=== PATIENT | male | born 1950 | race American Indian/Alaskan Native ===

== ENCOUNTER 2017-05-12 15:47 | Emergency (ER) | payer BC, MEDICAID, OTHER ==
[2017-05-12 16:10] VITALS: BP 145/89
--- NOTE | 2017-05-12 16:33 | ED PDOC ---
Arrival/HPI - General Chief Complaint: Palpitations Time Seen by Provider: 05/12/17 16:08 Historian: Patient - History of Present Illness Narrative History of Present Illness (Text): 05/12/17 16:33 67 y/o male w/ no sig endorsed pmh presents c/o 1 week of intermittent palpitations not associated with sob/dyer/cp/nausea/vomiting. Diaphoresis or exertional exacerbation/history of acs/malignant arrhythmia has ever been diagnosed on his q2 yearly physicals. Drinks 1 strong cup of coffee daily typically in the late morning , denies using stimulants/caffeinated sodas/ chocolate etc. No PMD Time/Duration: 1 week Symptom Onset: Sudden Symptom Course: Unchanged Past Medical History - Provider Review Nursing Documentation Reviewed: Yes - Infectious Disease Hx of Infectious Diseases: None - Psychiatric Hx Psychophysiologic Disorder: No Hx Substance Use: No - Anesthesia Hx Anesthesia: No Hx Anesthesia Reactions: No Hx Malignant Hyperthermia: No Family/Social History - Physician Review Nursing Documentation Reviewed: Yes Family/Social History: No Known Family HX Smoking Status: Never Smoked Hx Alcohol Use: No Hx Substance Use: No Allergies/Home Meds Allergies/Adverse Reactions: Allergies No Known Allergies Allergy (Verified 05/12/17 16:11) Home Medications: Home Meds Medication Instructions Recorded Confirmed No Known Home Med 05/12/17 05/12/17 Review of Systems - Review of Systems Constitutional: Normal Eyes: Normal ENT: Normal Respiratory: Normal Cardiovascular: Palpitations Gastrointestinal: Normal Genitourinary Male: Normal Musculoskeletal: Normal Skin: Normal Neurological: Normal Endocrine: Normal Hemo/Lymphatic: Normal Psychiatric: Normal Physical Exam Vital Signs Reviewed: Yes Vital Signs Pulse Resp BP Pulse Ox 05/12/17 17:08 88 05/12/17 16:04 87 19 145/89 97 Temperature: Afebrile Blood Pressure: Normal Pulse: Regular Respiratory Rate: Normal Appearance: Positive for: Well-Appearing, Non-Toxic, Comfortable Pain Distress: None Mental Status: Positive for: Alert and Oriented X 3 - Systems Exam Head: Present: Atraumatic, Normocephalic Pupils: Present: PERRL Extroacular Muscles: Present: EOMI Conjunctiva: Present: Normal Mouth: Present: Moist Mucous Membranes Neck: Present: Normal Range of Motion Respiratory/Chest: Present: Clear to Auscultation, Good Air Exchange. No: Respiratory Distress, Accessory Muscle Use Cardiovascular: Present: Regular Rate and Rhythm, Normal S1, S2. No: Murmurs Abdomen: Present: Normal Bowel Sounds. No: Tenderness, Distention, Peritoneal Signs Back: Present: Normal Inspection Upper Extremity: Present: Normal Inspection. No: Cyanosis, Edema Lower Extremity: Present: Normal Inspection. No: Edema Neurological: Present: GCS=15, CN II-XII Intact, Speech Normal, Motor Func Grossly Intact, Normal Sensory Function, Normal Cerebellar Funct, Norm Deep Tendon Reflexes, Gait Normal, Memory Normal, Normal 2Pt Descrimination Skin: Present: Warm, Dry, Normal Color. No: Rashes Psychiatric: Present: Alert, Oriented x 3, Normal Insight, Normal Concentration Medical Decision Making ED Course and Treatment: 05/12/17 17:39 Impression: 67 year old male with intermittent palpitations. Plan: -- EKG -- Chest X-ray -- Labs -- Urinalysis -- Reassess and disposition Progress Notes: 05/12/17 1600 nsr @ 82 bpm twi in I, aVL, V4-V6 Moderate criteria for LVH 21:41 05/12/17 2038 NSR @ 74 BPM TWI N 1, Avl, V5/V6 , V4 seemingly pseudo-normalized st-t complexes however qrs complex also different with no negative deflection so lead placement obviously diefferet Pt has not had any palpitations here nor has he ever admitted to chest pain/ pressure nor discomfort. . 05/12/17 21:52 Dr. Verdugo was contacted in ED and advised two sets, and advsies pattient to follow up in his office for possible holter monitry placement for detection of possible paroxysmal arrythmia. - Lab Interpretations Lab Results: 05/12/17 16:48 05/12/17 16:48 Lab Results 05/12/17 20:08: Troponin I < 0.01 05/12/17 18:50: Urine Opiates Screen Negative, Urine Methadone Screen Negative, Ur Barbiturates Screen Negative, Ur Phencyclidine Scrn Negative, Ur Amphetamines Screen Negative, U Benzodiazepines Scrn Negative, U Oth Cocaine Metabols Negative, U Cannabinoids Screen Negative 05/12/17 18:50: Urine Color Yellow, Urine Appearance Clear, Urine pH 7.0, Ur Specific [place] 1.015, Urine Protein Negative, Urine Glucose (UA) Negative, Urine Ketones Negative, Urine Blood Negative, Urine Nitrate Negative, Urine Bilirubin Negative, Urine Urobilinogen 1.0 H, Ur Leukocyte Esterase Negative 05/12/17 16:48: Thyroxine (T4) 7.0, TSH 3rd Generation 0.83 05/12/17 16:48: PT 11.6, INR 1.06, APTT 33.6 05/12/17 16:48: Sodium 142, Potassium 4.0, Chloride 104, Carbon Dioxide 29, Anion Gap 13, BUN 12, Creatinine 1.0, Est GFR ( Amer) > 60, Est GFR (Non- Af Amer) > 60, Random Glucose 107, Calcium 9.6, Magnesium 1.9, Total Bilirubin 0.6, AST 24, ALT 40, Alkaline Phosphatase 80, Lactate Dehydrogenase 398, Total Creatine Kinase 128, Troponin I < 0.01, NT-Pro-B Natriuret Pep < 11.1, Total Protein 7.2, Albumin 4.0, Globulin 3.2, Albumin/Globulin Ratio 1.3 05/12/17 16:48: WBC 5.1, RBC 4.78, Hgb 14.7, Hct 40.7 L, MCV 85.1, MCH 30.8, MCHC 36.1, RDW 13.9, Plt Count 184, MPV 9.7, Gran % 42.5 L, Lymph % (Auto) 47.3 H, Harper % (Auto) 8.0 H, Eos % (Auto) 1.8, Baso % (Auto) 0.4, Gran # 2.17, Lymph # 2.4, Harper # 0.4, Eos # 0.1, Baso # 0.02 I have reviewed the lab results: Yes - RAD Interpretation Radiology Orders: 05/12/17 16:17 CHEST TWO VIEWS (PA/LAT) [RAD] Stat Disposition/Present on Arrival - Present on Arrival Any Indicators Present on Arrival: No History of DVT/PE: No History of Uncontrolled Diabetes: No Urinary Catheter: No History of Decub. Ulcer: No History Surgical Site Infection Following: None - Disposition Have Diagnosis and Disposition been Completed?: Yes Diagnosis: Palpitations Disposition: HOME/ ROUTINE Disposition Time: 21:53 Patient Plan: Discharge Condition: GOOD Discharge Instructions (ExitCare): Palpitations (ED) Print Language: WALLISIAN Referrals: Radhames Quan MD [Staff Provider] - Follow up with primary Forms: [employer] (French)
[2017-05-12 17:09] LABS: BASO # 0.02 K/mm3 (0.0-2.0); BASO % 0.4 % (0.0-3.0); EOS # 0.1 (0.0-0.7); EOS % 1.8 % (1.5-5.0); GRAN # 2.17 (1.4-6.5); GRAN % 42.5 % (50.0-68.0); HEMATOCRIT 40.7 % (42.0-52.0); LYMPH # 2.4 (1.2-3.4); LYMPH % 47.3 % (22.0-35.0); MEAN CELL VOLUME 85.1 fl (80.0-105.0); MEAN CORPUSCULAR HEMOGLOBIN 30.8 pg (25.0-35.0); MEAN CORPUSCULAR HGB CONC 36.1 g/dl (31.0-37.0); MEAN PLATELET VOLUME 9.7 fl (7.0-11.0); MONO # 0.4 (0.1-0.6); RED CELL DISTRIBUTION WIDTH 13.9 % (11.5-14.5); WHITE BLOOD COUNT 5.1 10^3/ul (4.5-11.0)
[2017-05-12 17:15] LABS: ALB/GLOB RATIO 1.3 (1.1-1.8); ALKALINE PHOSPHATASE 80 U/L (38-126); ALT/SGPT 40 U/L (7-56); AST/SGOT 24 U/L (17-59); BILIRUBIN,TOTAL 0.6 mg/dL (0.2-1.3); BLOOD UREA NITROGEN 12 mg/dL (7-21); CALCIUM 9.6 mg/dL (8.4-10.5); CARBON DIOXIDE 29 mmol/L (21-33); CHLORIDE 104 mmol/L (98-107); GFR AFRICAN-AMERICAN > 60; GLUCOSE,RANDOM 107 mg/dL (70-110); MAGNESIUM 1.9 mg/dL (1.7-2.2); SODIUM 142 mmol/L (132-148); TOTAL PROTEIN 7.2 g/dL (5.8-8.3)
[2017-05-12 17:25] LABS: INR 1.06 (0.93-1.08); PARTIAL THROMBOPLASTIN TIME 33.6 Seconds (25.1-36.5)
[2017-05-12 17:29] LABS: TROPONIN I < 0.01 ng/mL
[2017-05-12 17:46] LABS: THYROID STIMULATING HORMONE 0.83 mIU/mL (0.46-4.68)
[2017-05-12 19:00] LABS: URINE BILIRUBIN NEGATIVE (NEGATIVE); URINE BLOOD NEGATIVE (NEGATIVE); URINE GLUCOSE (UA) NEGATIVE (NEGATIVE); URINE KETONE NEGATIVE (NEGATIVE); URINE LEUKOCYTE ESTERASE NEGATIVE Leu/uL (NEGATIVE); URINE PROTEIN NEGATIVE mg/dL (<30 mg/dL)
[2017-05-12 19:09] LABS: URINE APPEARANCE CLEAR (CLEAR); URINE COLOR YELLOW (YELLOW)
[2017-05-12 22:10] VITALS: PULSE 68; RESP 20; O2SAT 95
--- NOTE | 2017-05-13 07:16 | RAD ---
HISTORY: palpitations COMPARISON: No prior. TECHNIQUE: Chest PA and lateral FINDINGS: LUNGS: No active pulmonary disease. PLEURA: No significant pleural effusion identified. No pneumothorax apparent. CARDIOVASCULAR: The cardiac silhouette appears normal. There is a convex left lateral segment of the descending thoracic aorta which could be aneurysmal. Alternatively, there may be lesion anterior to the descending thoracic aorta creating this contour. Follow-up chest CT with contrast is advised for better characterization. OSSEOUS STRUCTURES: No significant abnormalities. VISUALIZED UPPER ABDOMEN: Normal. OTHER FINDINGS: None. IMPRESSION: No active pulmonary disease appreciable. The descending thoracic aortic aneurysm not is not excluded or other possible lesion anterior to the thoracic here in the mediastinum. Follow-up chest CT with contrast is advised for greater characterization.
--- NOTE | 2017-05-14 09:38 | CARD ---
APPROVED REPORT EKG Measurement Heart [id number] <Conclusion> Normal sinus rhythm Moderate voltage criteria for LVH T wave abnormality, consider lateral ischemia
--- NOTE | 2017-05-14 09:43 | CARD ---
APPROVED REPORT EKG Measurement Heart [id number] [place] [id number] <Conclusion> Normal sinus rhythm LVH STTW changes c/w ischemia No change
== END 2017-05-12 22:12 | disposition home or self-care (01) ==
LOC: ED 15:47
DX: R00.2 Palpitations (principal)
CPT/HCPCS: 71020; 80053; 81003; 82550; 83615; 83735; 83880; 84436; 84443; 84484; 85025; 85610; 85730; 99285; G0480

== ENCOUNTER 2018-12-07 17:18 | Emergency (ER) | payer BC ==
[2018-12-07 17:30] VITALS: BMI 28.0
[2018-12-07 17:32] VITALS: BP 137/83; PULSE 81; RESP 16; TEMP 98.9; O2SAT 97
--- NOTE | 2018-12-07 18:31 | ED PDOC ---
Arrival/HPI - General Chief Complaint: ENT Problem Time Seen by Provider: 12/07/18 17:31 Historian: Patient - History of Present Illness Narrative History of Present Illness (Text): 12/07/18 18:31 68 y/o male with PMH of sinusitis presents to the ED c/o intermittent sinus congestion and rhinorrhea x several years. Pt states he is in ED at the advice of his friend who recommended he "get checked out", as the friend is also being evaluated in ED at this time. Pt states his symptoms are worst when the weather changes and are occasionally associated with itchy watery eyes. Has never taken any medication for his symptoms. Denies fever, chills, cough, chest pain, SOB, purulent rhinorrhea, headache, neck pain/stiffness, ear pain, dizziness, SOB, palpitations, or any other associated symptoms. Past Medical History - Provider Review Nursing Documentation Reviewed: Yes - Infectious Disease Hx of Infectious Diseases: None - Psychiatric Hx Psychophysiologic Disorder: No Hx Substance Use: No - Anesthesia Hx Anesthesia: No Hx Anesthesia Reactions: No Hx Malignant Hyperthermia: No Family/Social History - Physician Review Nursing Documentation Reviewed: Yes Family/Social History: No Known Family HX Smoking Status: Never Smoked Hx Alcohol Use: No Hx Substance Use: No Allergies/Home Meds Allergies/Adverse Reactions: Allergies No Known Allergies Allergy (Verified 12/07/18 17:29) Review of Systems - Review of Systems Constitutional: Normal. absent: Fevers Eyes: Normal. absent: Vision Changes ENT: Rhinorrhea, Sinus Congestion. absent: Sore Throat Respiratory: Normal. absent: SOB, Cough, Sputum, Wheezing Cardiovascular: Normal. absent: Chest Pain, Palpitations, Syncope Gastrointestinal: Normal. absent: Abdominal Pain, Nausea, Vomiting Musculoskeletal: Normal. absent: Back Pain, Neck Pain Skin: Normal. absent: Rash Neurological: Normal. absent: Headache, Dizziness Physical Exam Vital Signs Reviewed: Yes Vital Signs Temp Pulse Resp BP Pulse Ox 12/07/18 17:31 98.9 F 81 16 137/83 97 Temperature: Afebrile Blood Pressure: Normal Pulse: Regular Respiratory Rate: Normal Appearance: Positive for: Well-Appearing, Non-Toxic, Comfortable Pain Distress: None Mental Status: Positive for: Alert and Oriented X 3 - Systems Exam Head: Present: Atraumatic, Normocephalic Pupils: Present: PERRL Extroacular Muscles: Present: EOMI Conjunctiva: Present: Normal Ears: Present: Normal, NORMAL TM, Normal Canal Mouth: Present: Moist Mucous Membranes Pharnyx: Present: Normal. No: ERYTHEMA, EXUDATE, TONSILS ENLARGED Neck: Present: Normal Range of Motion Respiratory/Chest: Present: Clear to Auscultation, Good Air Exchange. No: Respiratory Distress, Accessory Muscle Use Cardiovascular: Present: Regular Rate and Rhythm, Normal S1, S2, Peripheal Pulses Present Upper Extremity: Present: Normal Inspection, Normal ROM Lower Extremity: Present: Normal Inspection, Normal ROM. No: Edema Neurological: Present: GCS=15, Speech Normal, Motor Func Grossly Intact, Normal Sensory Function, Gait Normal Skin: Present: Warm, Dry, Normal Color. No: Rashes Psychiatric: Present: Alert, Oriented x 3, Normal Insight, Normal Concentration, Normal Affect, Normal Mood Medical Decision Making ED Course and Treatment: Initial Plan: * Reassess and Disposition Symptoms most consistent with seasonal allergies/allergic rhinitis. Pt given prescriptions for flonase and antihistamine and advised PMD followup. Contrary to triage, pt denies cough. States he coughed once while in waiting room. Diagnostic testing results and plan of care discussed with patient. Strict instructions given regarding prescription use, importance of followup, and signs/symptoms to return to ER including fever, chills, cough, chest pain, SOB, or any other new/worsening symptoms. Pt verbalized understanding of discussion. Patient is A&Ox3, ambulating with steady gait, with vital signs stable for discharge. Disposition/Present on Arrival - Present on Arrival Any Indicators Present on Arrival: No History of DVT/PE: No History of Uncontrolled Diabetes: No Urinary Catheter: No History of Decub. Ulcer: No History Surgical Site Infection Following: None - Disposition Have Diagnosis and Disposition been Completed?: Yes Diagnosis: Seasonal allergies Disposition: HOME/ ROUTINE Disposition Time: 17:45 Patient Plan: Discharge Condition: STABLE Discharge Instructions (ExitCare): Sinusitis in Adults, Seasonal Allergies (DC) Additional Instructions: Flonase 2 sprays per nostril daily Zyrtec daily Followup with primary doctor within 2 days Return to ER with any new/worsening symptoms Prescriptions: Cetirizine HCl [Zyrtec] 10 mg PO DAILY #30 capsule Fluticasone Propionate [Flonase] 2 spr NS DAILY #1 bottle Referrals: [facility] at [facility] [Outside] - Follow up with primary Mabel Navarro MD [Medical Doctor] - Follow up with primary Forms: [employer] (Sami), WORK NOTE
== END 2018-12-07 18:09 | disposition home or self-care (01) ==
LOC: ED 17:18
DX: J30.2 Other seasonal allergic rhinitis (principal)